=== PATIENT | male | born 1960 | race Caucasian/White ===

== ENCOUNTER → 2023-10-28 | Outpatient (CLI) | payer MEDICARE ==
[2023-10-28 12:29] LABS: CHOLESTEROL 125 mg/dL (<200); HDL CHOLESTEROL 55 mg/dL (29-71); LDL DIRECT 56 mg/dL (0-99); TRIGLYCERIDES 197 mg/dL (30-200)
== END | disposition home or self-care (01) ==
LOC: LAB 09:51
PROVIDERS: ATTEND Internal Medicine
DX: I25.10 Atherosclerotic heart disease of native coronary artery without angina pectoris (principal); E78.5 Hyperlipidemia, unspecified
CPT/HCPCS: 36415; 80061